=== PATIENT | male | born 1970 | race African-American/Black ===

== ENCOUNTER 2023-03-25 10:51 | Emergency (ER) | payer OTHER ==
[~2023-03-25] VITALS: Ht 175.3 cm; Wt 81.5 kg
[2023-03-25] MEDS ORDERED: EPINEPHrine 1:10,000 [1 MG/10 ML] SYRINGE IVP ONE (10:55)
[2023-03-25 11:12] VITALS: BP 1/1
== END 2023-03-25 13:05 ==
LOC: EDBD 10:54 → EMS 10:54
DX: I46.9 Cardiac arrest, cause unspecified (principal)
CPT/HCPCS: 99285; 92950; 82962; J0171